=== PATIENT | female | born 2000 | race Caucasian/White ===

== ENCOUNTER → 2023-12-06 | Outpatient (CLI) | payer OTHER ==
--- NOTE | 2023-12-06 19:01 | US ---
EXAMINATION TYPE: US pelvic complete DATE OF EXAM: 12/06/2023 COMPARISON: NONE CLINICAL INDICATION: Female, 23 years old with history of N92.1 EXCESSIVE AND FREQUENT MENSTRUATION W ITH IRR; Multiple menses per month since menarche, more this last month TECHNIQUE: . Transabdominal sonographic images of the pelvis were acquired. Transvaginal sonographi c images were not medically necessary - patient not sexually active Date of LMP: ?? EXAM MEASUREMENTS: Uterus: 5.4 x 2.9 x 4.1 cm Endometrial Stripe: 1.0 cm Right Ovary: 3.8 x 2.4 x 2.8 cm Left Ovary: 3.4 x 2.4 x 1.8 cm 1. Uterus: Anteverted wnl 2. Endometrium: ? Thickened 3. Right Ovary: Limited visualization 4. Left Ovary: Limited visualization 5. Bilateral Adnexa: wnl 6. Posterior cul-de-sac: wnl IMPRESSION: 1. No suspicious ultrasound abnormality pelvic ultrasound
== END | disposition home or self-care (01) ==
LOC: RADUSWWP 12:30
PROVIDERS: ATTEND Family Medicine
DX: N92.1 Excessive and frequent menstruation with irregular cycle (principal)
CPT/HCPCS: 76856